=== PATIENT | female | born 1940 | race Caucasian/White ===

== ENCOUNTER 2022-04-13 06:52 | Outpatient (RCR) | payer MEDICARE, SELFPAY ==
[2022-03-30 10:53] VITALS: BP 134/64; PULSE 80; RESP 16; TEMP 36.6; O2SAT 99
[2022-03-30] MEDS: Heparin 500 UNITS/5 ML SYRINGE IV (10:55)
[2022-03-30] MEDS: Normal Saline Flush 10 ML SYR IVP (10:55)
[2022-04-13 11:19] VITALS: BP 120/60; PULSE 69; RESP 16; TEMP 36.8; O2SAT 97
[2022-04-13] MEDS: Normal Saline Flush 10 ML SYR IVP (11:23)
[2022-04-13] MEDS: Heparin 500 UNITS/5 ML SYRINGE IV (11:23)
== END 2022-04-29 23:59 | disposition home or self-care (01) ==
LOC: INF 06:52
PROVIDERS: PCP Hospitalist; Visit Provider Internal Medicine Hematology & Oncology
DX: Z45.2 Encounter for adjustment and management of vascular access device (principal)
CPT/HCPCS: 96523